=== PATIENT | male | born 1990 | race Caucasian/White ===

== ENCOUNTER 2016-09-12 20:10 | Observation (INO) | payer BC ==
[2016-09-12] MEDS ORDERED: Sodium Chloride 0.9% 1000 ML 1,000 ML IV STA (20:25)
[2016-09-12] MEDS ORDERED: MORPHINE SULFATE 4 MG INJ IV ONE ×2 (20:25→22:20)
[2016-09-12] MEDS ORDERED: Zofran 4 MG/2 ML VIAL IV ONE (20:25)
[2016-09-12] MEDS ORDERED: Zofran 4 MG/2 ML VIAL ONE (20:29)
[2016-09-12] MEDS ORDERED: Sodium Chloride 0.9% 1000 ML 1,000 ML ONE (20:29)
[2016-09-12] MEDS ORDERED: MORPHINE SULFATE 4 MG INJ ONE ×2 (20:29→22:23)
--- NOTE | 2016-09-12 20:29 | ERPHSYRPT ---
- History of Present Illness Time Seen by Provider: 09/12/16 20:25 Historian: patient Exam Limitations: no limitations Physician History: 25-year-old white male arrives with complaint of pain in the epigastric region symptoms for 2-3 days describes the pain as a pressure he has been nauseous no vomiting no diarrhea no melena no hematochezia. Past medical history includes hypoglycemia, pneumonia as a child. Past surgical history myringotomy tubes as a child. Timing/Duration: day(s) (2-3 days) Activities at Onset: none Quality: pressure Abdominal Pain Onset Location: epigastric Pain Radiation: no radiation Severity of Pain-Max: moderate Severity of Pain-Current: moderate Modifying Factors: Improves With: nothing Associated Symptoms: nausea, No back, No chest pain, No diaphoresis, No diarrhea , No fever/chills, No fatigue, No headache, No heartburn, No loss of appetite, No neck pain, No rash, No shortness of breath, No syncope, No vomiting, No weakness Previous symptoms: no prior history Allergies/Adverse Reactions: cefaclor [From Ceclor] Allergy (Severe, Verified 09/12/16 20:28) ANAPHYLACTIC REACTION. Cephalosporins Allergy (Verified 09/12/16 20:28) Penicillins Allergy (Verified 09/12/16 20:28) Home Medications: No Home Meds 1 ea UD 09/12/16 [History] Hx Tetanus, Diphtheria Vaccination/Date Given: Yes (2011) Hx Influenza Vaccination/Date Given: No Hx Pneumococcal Vaccination/Date Given: No - Review of Systems Constitutional: No Fever, No Chills Eyes: No Symptoms Ears, Nose, & Throat: No Symptoms Respiratory: No Cough, No Dyspnea Cardiac: No Chest Pain, No Edema, No Syncope Abdominal/Gastrointestinal: Abdominal Pain, Nausea, No Vomiting, No Diarrhea, No Constipation, No Hematemesis, No Hematochezia, No Melena, No Dysphagia, No Appetite Changes Genitourinary Symptoms: No Dysuria Musculoskeletal: No Back Pain, No Neck Pain Skin: No Rash Neurological: No Dizziness, No Focal Weakness, No Sensory Changes Psychological: No Symptoms Endocrine: No Symptoms All Other Systems: Reviewed and Negative - Past Medical History Pertinent Past Medical History: Yes Neurological History: No Pertinent History ENT History: No Pertinent History Cardiac History: No Pertinent History Respiratory History: No Pertinent History Endocrine Medical History: Hypoglycemia Musculoskeletal History: No Pertinent History GI Medical History: No Pertinent History History: No Pertinent History Psycho-Social History: No Pertinent History Male Reproductive Disorders: Other Other Medical History: PT STATES HE HAD PNEUMONIA A CHILD. DX WITH HYPOGLYCEMIA A CHILD. - Past Surgical History Past Surgical History: No Neuro Surgical History: No Pertinent History Cardiac: No Pertinent History Respiratory: No Pertinent History Gastrointestinal: No Pertinent History Genitourinary: No Pertinent History Musculoskeletal: No Pertinent History Male Surgical History: No Pertinent History Other Surgical History: HAD TUBES PLACED TWICE A CHILD - Social History Smoking Status: Current every day smoker How long have you smoked: 2 YEARS Exposure to second hand smoke: Yes Drug Use: none Patient Lives Alone: No - Nursing Vital Signs Nursing Vital Signs: Initial Vital Signs Temperature 97.7 F Temperature Source Oral Pulse Rate 64 Respiratory Rate 18 Blood Pressure [] 136/68 Pain Intensity 7 - Physical Exam General Appearance: moderate distress, alert Eye Exam: PERRL/EOMI, eyes nml inspection Ears, Nose, Throat Exam: normal ENT inspection Neck Exam: normal inspection, non-tender, supple, full range of motion Respiratory Exam: normal breath sounds, lungs clear, No respiratory distress Cardiovascular Exam: regular rate/rhythm, normal heart sounds Gastrointestinal/Abdomen Exam: other (abdomen tender epigastric region with palpation positive bowel sounds no masses patient sitting up forward) Back Exam: normal inspection, normal range of motion, No CVA tenderness, No vertebral tenderness Extremity Exam: normal inspection, normal range of motion, pelvis stable Neurologic Exam: alert, oriented x 3, cooperative, normal mood/affect, nml cerebellar function, sensation nml, No motor deficits Skin Exam: normal color, warm, dry SpO2: 98 Oxygen Delivery: Room Air - Course Nursing assessment & vital signs reviewed: Yes - CT Exams Abdomen/Pelvis CT Interpretation: Discussed w/radiologist (CT abdomen and pelvis with contrast : Compared to November 05, 2011, mild fluid distended bowel loops, mid abdomen with fluid leveling and wall thickening favoring enteritis. Moderate diffuse fecal stasis. Appendix not seen) Ordered Tests: Active Orders 24 hr Category Date Time Status Clean Catch Urine Specimen STAT Care 09/12/16 20:25 Active IV Insertion STAT Care 09/12/16 20:24 Active ABDOMEN AND PELVIS W CONTRAST [CT] Stat Exams 09/12/16 21:02 Taken AMYLASE Stat Lab 09/12/16 20:20 Completed CBC W DIFF Stat Lab 09/12/16 20:20 Completed CMP Stat Lab 09/12/16 20:20 Completed LIPASE Stat Lab 09/12/16 20:20 Completed UA Stat Lab 09/12/16 20:20 Completed Transfer Order Routine Transfer 09/12/16 22:27 Ordered Medication Summary Discontinued Medications Generic Name Dose Route Start Last Admin Trade Name Tamia PRN Reason Stop Dose Admin Sodium Chloride 1,000 mls @ 999 mls/hr 09/12/16 20:25 09/12/16 20:33 Sodium Chloride 0.9% 1000 Ml IV 09/12/16 21:25 999 mls/hr .Q1H1M STA Administration Sodium Chloride Confirm 09/12/16 20:29 Sodium Chloride 0.9% 1000 Ml Administered 09/12/16 20:30 Dose 1,000 mls @ ud .ROUTE .STK-MED ONE Morphine Sulfate 4 mg 09/12/16 20:25 09/12/16 20:33 Morphine Sulfate 4 Mg Inj IV 09/12/16 20:26 4 mg STAT ONE Administration Morphine Sulfate Confirm 09/12/16 20:29 Morphine Sulfate 4 Mg Inj Administered 09/12/16 20:30 Dose 4 mg .ROUTE .STK-MED ONE Morphine Sulfate 4 mg 09/12/16 22:20 09/12/16 22:24 Morphine Sulfate 4 Mg Inj IV 09/12/16 22:21 4 mg STAT ONE Administration Morphine Sulfate Confirm 09/12/16 22:23 Morphine Sulfate 4 Mg Inj Administered 09/12/16 22:24 Dose 4 mg .ROUTE .STK-MED ONE Ondansetron HCl 4 mg 09/12/16 20:25 09/12/16 20:33 Zofran 4 Mg/2 Ml Vial IV 09/12/16 20:26 4 mg STAT ONE Administration Ondansetron HCl Confirm 09/12/16 20:29 Zofran 4 Mg/2 Ml Vial Administered 09/12/16 20:30 Dose 4 mg .ROUTE .STK-MED ONE Lab/Rad Data: Laboratory Result Diagrams 09/12/16 20:20 09/12/16 20:20 Laboratory Results 09/12/16 09/12/16 09/12/16 Range/Units 20:20 20:20 20:20 WBC 8.6 (4.0-10.5) K/mm3 RBC 4.70 (4.1-5.6) M/mm3 Hgb 14.5 (12.5-18.0) gm/dl Hct 42.8 (42-50) % MCV 91.1 (78-100) fl MCH 30.9 (26-32) pg MCHC 33.9 (32-36) g/dl RDW 13.4 (11.5-14.0) % Plt Count 204 (150-450) K/mm3 MPV 11.1 H (6-9.5) fl Gran % 59.0 (36.0-66.0) % Lymphocytes % 31.6 (24.0-44.0) % Monocytes % 8.7 (0.0-12.0) % Eosinophils % 0.7 (0.00-5.0) % Basophils % 0.0 (0.0-0.4) % Basophils # 0 (0-0.4) Sodium 143 (136-145) mEq/L Potassium 3.9 (3.5-5.1) mEq/L Chloride 104 (98-107) mEq/L Carbon Dioxide 29.2 (21-32) mEq/L Anion Gap 13.7 (5-15) MEQ/L BUN 10 (9-20) mg/dL Creatinine 1.09 (0.55-1.30) mg/dl Estimated GFR > 60 ML/MIN Glucose 117 H (70-110) MG/DL Calcium 9.4 (8.5-10.1) mg/dL Total Bilirubin 0.2 (0.2-1.0) mg/dL AST 21 (15-37) U/L ALT 16 (12-78) U/L Alkaline Phosphatase 77 (46-116) U/L Serum Total Protein 7.6 (6.4-8.2) gm/dL Albumin 4.1 (3.4-5.0) g/dL Amylase 107 (25-115) U/L Lipase 88 (73-393) U/L Ur Collection Type CLEAN CATCH Urine Color YELLOW (YELLOW) Urine Appearance SLIGHTLY CLOUDY (CLEAR) Urine pH 7.5 (5-6) Ur Specific [place] 1.020 (1.005-1.025) Urine Protein NEGATIVE (Negative) Urine Glucose (UA) NEGATIVE (NEGATIVE) mg/dL Urine Ketones NEGATIVE (NEGATIVE) Urine Nitrite NEGATIVE (NEGATIVE) Urine Bilirubin NEGATIVE (NEGATIVE) Urine Urobilinogen 0.2 (0-1) mg/dL Urine WBC (Auto) NEGATIVE (NEGATIVE) Urine RBC (Auto) NEGATIVE (0-5) Lefty/ul Specimen Received 09/12/16 2030 - Progress Progress: improved Progress Note: 09/12/16 21:00 This is a 25-year-old white male previously healthy arrives with complaint of epigastric pain described as a pressure which is a moderately severe symptoms for 2-3 days she states that he has not been vomiting he has been nauseous denies constipation melena hematochezia or diarrhea. Patient's labs are essentially normal patient however is quite tender in the epigastric region and he is sitting forward to avoid pain in this area. Patient is given IV normal saline IV morphine and Zofran he continues to experience pain in this area . Will go ahead and CT patient's abdomen. 09/12/16 22:05 Patient with mild fluid distended bowel loops mid abdomen with fluid leveling and wall thickening favoring enteritis on CT there is moderate diffuse fecal stasis appendix was not well seen. Patient's labs essentially normal. Patient continues to complain of a nausea and epigastric pain. Will discuss case with Dr. minor for possible placement on observation 09/12/16 22:24 Case is discussed with Dr. minor she is agreeable for observation however she did state that she would like to have the surgeons contacted and case patient has worsening overnight. I've discussed the case with Dr. Frost. He did state that if the patient continues to have vomiting not responsive to his antiemetics or has distended abdomen consider an NG tube he did state that they will not be by until tomorrow night. patient appears to be stable , he has a normal white count. And looks like enteritis on CT. Will place on observation - Departure Time of Disposition: 22:26 Departure Disposition: Observation Clinical Impression: Epigastric abdominal pain, Enteritis Condition: Fair Critical Care Time: No Referrals: STEVE AMARAL MD [Primary Care Provider] -
[2016-09-12 20:32] LABS: Eosinophil % 0.7 % (0.00-5.0); Lymphocytes % 31.6 % (24.0-44.0); Mean Cell Volume 91.1 fl (78-100); Mean Corpuscular Hemoglobin 30.9 pg (26-32); Mean Platelet Volume 11.1 fl (6-9.5); Monocytes % 8.7 % (0.0-12.0); Platelet Count 204 K/mm3 (150-450); Red Cell Distribution Width 13.4 % (11.5-14.0); White Blood Count 8.6 K/mm3 (4.0-10.5)
[2016-09-12 20:40] LABS: COMPLETE URINE MICROSCOPIC? NO; Collection Type CLEAN CATCH; Ph 7.5 (5-6)
[2016-09-12 20:52] LABS: ALBUMIN 4.1 g/dL (3.4-5.0); ALKALINE PHOSPHATASE 77 U/L (46-116); ANION GAP 13.7 MEQ/L (5-15); BILIRUBIN,TOTAL 0.2 mg/dL (0.2-1.0); BLOOD UREA NITROGEN 10 mg/dL (9-20); CHLORIDE 104 mEq/L (98-107); Carbon Dioxide 29.2 mEq/L (21-32); Glucose 117 MG/DL (70-110); LIPASE 88 U/L (73-393); Potassium 3.9 mEq/L (3.5-5.1); SGOT/AST 21 U/L (15-37); SGPT/ALT 16 U/L (12-78); SODIUM 143 mEq/L (136-145); Total Protein 7.6 gm/dL (6.4-8.2)
[2016-09-12] MEDS ORDERED: Zofran 4 MG/2 ML VIAL IV PRN (23:08)
[2016-09-12] MEDS: Sodium Chloride 0.9% 1000 ML 1,000 ML IV SCH (23:17)
[2016-09-13 05:55] LABS: BASOPHIL % 0.2 % (0.0-0.4); Eosinophil % 0.5 % (0.00-5.0); Granulocytes % 50.5 % (36.0-66.0); Lymphocytes % 39.2 % (24.0-44.0); Mean Cell Volume 93.5 fl (78-100); Mean Corpuscular Hemoglobin 30.5 pg (26-32); Mean Platelet Volume 11.3 fl (6-9.5); Monocytes % 9.6 % (0.0-12.0); Platelet Count 145 K/mm3 (150-450); Red Blood Count 4.29 M/mm3 (4.1-5.6); Red Cell Distribution Width 13.3 % (11.5-14.0); White Blood Count 6.4 K/mm3 (4.0-10.5)
[2016-09-13 06:07] LABS: ALBUMIN 3.2 g/dL (3.4-5.0); ALKALINE PHOSPHATASE 54 U/L (46-116); ANION GAP 10.3 MEQ/L (5-15); BILIRUBIN,TOTAL 0.3 mg/dL (0.2-1.0); BLOOD UREA NITROGEN 9 mg/dL (9-20); CHLORIDE 109 mEq/L (98-107); Carbon Dioxide 30.3 mEq/L (21-32); Glucose 77 MG/DL (70-110); Potassium 4.6 mEq/L (3.5-5.1); SGOT/AST 17 U/L (15-37); SGPT/ALT 12 U/L (12-78); SODIUM 145 mEq/L (136-145)
[2016-09-13] MEDS: MORPHINE SULFATE 4 MG INJ IV PRN ×3 (08:33→17:42)
--- NOTE | 2016-09-13 08:57 | XRAY ---
Indication: Epigastric pain and vomiting. Multiple contiguous axial images obtained through the abdomen and pelvis using 80 cc Isovue 370 contrast only. Comparison: Noncontrast exam November 05, 2011. Lung bases are clear. Heart is not enlarged. Noncontrasted stomach and bowel loops appear nonobstructed. Several small bowel loops in the mid to left abdomen are now moderately fluid distended with some fluid leveling and wall thickening/enhancement favoring enteritis. Moderate diffuse scattered colonic fecal debris throughout. Appendix not seen. No free fluid/air. Remaining liver, gallbladder, pancreas, spleen, adrenal glands, kidneys, ureters, bladder, and aorta appear unremarkable. No pathologic retroperitoneal lymphadenopathy. Osseous structures intact. Impression: 1. New CT features favoring small bowel enteritis. No complications. 2. Incidental fecal stasis without obstruction. CT DI 15.49
--- NOTE | 2016-09-13 09:22 | HP ---
HISTORY OF PRESENT ILLNESS: This is a 25 y/o man who presented to the Emergency Department. He reports that he had had stomach pain for 2-3 days mostly in the middle epigastric area and it feels like a constant pressure. He also reports that he has been constipated for 2-3 days. He actually thinks his last bowel movement was Sunday and this is now Sunday. He reports some vomiting and last vomited in the Emergency Room at approximately 8:30 last night. He reports the pain medications given in the Emergency Room and overnight in the hospital have helped and he was able to sleep. He denies any previous problems like this. The patient reports, if he eats a full meal, his stomach feels better for a couple of hours. REVIEW OF SYSTEMS: He has had a little bit of a cough, but not more than his usual cough. It is nonproductive. He denies any chest pain. No headaches. No rashes. He reports he has been urinating okay. No lower extremity edema. Otherwise, Review of Systems is negative. PAST MEDICAL HISTORY: History of hypoglycemia and kidney stone. PAST SURGICAL HISTORY: Myringotomy tubes placed and removed. SOCIAL HISTORY: He smokes 1 pack per day. He reports he is cutting back and thinking about quitting. He reports he used to smoke 2 1/2 packs per day and started when he was 13 years old. He uses alcohol 1-2 times a week and drinks 1-2 drinks at a time. He has no history of withdrawal from alcohol. He reports using marijuana, but not for the past year. He denies any illicit drugs. FAMILY HISTORY: His mother is living and has hypoglycemia and arthritis. His father is living and has hypertension and history of kidney stones. The patient reports coronary artery disease runs on his dad's side of the family. CURRENT MEDICATIONS: None. ALLERGIES: PENICILLIN, CEPHALOSPORINS, CECLOR. PHYSICAL EXAMINATION: VITAL SIGNS: Temperature current 97.6, temperature maximum 97.7, heart rate 58-70, respiratory rate 14-18, BP 114-141/61-85, weight 59 Kg. GENERAL: The patient is a pleasant, talkative man sitting up in bed in no acute distress. CVS: He has a regular rate and rhythm. No murmurs, gallops, or rubs. CHEST: Clear to auscultation bilaterally. No crackles or wheezes. ABDOMEN: He is tender in the epigastric area. No guarding. No rigidity. Normal bowel sounds. EXTREMITIES: No clubbing, cyanosis, or edema. SKIN: Warm, dry, and intact. LABORATORY DATA: On admission, his WBC was 8.6. Repeat WBC 6.4. Amylase and lipase were negative. UA was negative. Glucose 77 this AM. He had a CT scan of his abdomen and pelvis with a preliminary report of mild fluid distended bowel loops in the mid abdomen with fluid leveling and wall thickening favoring enteritis, moderate diffuse fecal stasis, and appendix not seen. ASSESSMENT AND PLAN: 1. EPIGASTRIC PAIN: I asked the Emergency Room doctor to call the general surgeons which he did and they plan to see the patient today. Will continue with IV fluids and a clear liquid diet. Morphine as needed for pain. I am going to start him on Protonix 40 mg IV daily. He may need an upper endoscopy either inpatient or as an outpatient for evaluation for possible ulcer. 2. TOBACCO ABUSE: The patient was counseled that he needs to quit. 3. CONSTIPATION: Will start him on a stool softener.
[2016-09-13] MEDS: PROTONIX 40 MG IV IV SCH (09:28)
[2016-09-13] MEDS: Nicoderm CQ 21 MG TOP SCH (09:28)
[2016-09-13] MEDS: Sodium Chloride 0.9% 1000 ML 1,000 ML IV SCH ×2 (09:28→21:42)
[2016-09-13] MEDS: Senokot-S Tablet PO PRN ×2 (09:36→21:42)
[2016-09-13] MEDS: Levofloxacin 500MG/100ML D5W 100 ML IV SCH (16:34)
[2016-09-13] MEDS: FLAGYL 500 MG IVPB 100 ML IV SCH ×2 (18:23→23:59)
[2016-09-14] MEDS: FLAGYL 500 MG IVPB 100 ML IV SCH ×2 (05:19→10:09)
[2016-09-14 05:32] LABS: Mean Cell Volume 92.2 fl (78-100); Mean Corpuscular Hemoglobin 30.7 pg (26-32); Mean Platelet Volume 11.5 fl (6-9.5); Platelet Count 166 K/mm3 (150-450); Red Blood Count 4.63 M/mm3 (4.1-5.6); Red Cell Distribution Width 13.2 % (11.5-14.0); White Blood Count 5.4 K/mm3 (4.0-10.5)
--- NOTE | 2016-09-14 07:41 | CONS ---
CONSULT DATE: 09/13/2016 HISTORY: A 25 year-old gentleman with couple day history of some vague abdominal pain, persistent nausea and vomiting. He denies any diarrhea, denies any bloody stools. He has been afebrile. His white blood cell count is 6.4, hemoglobin 13.1, no shift, PLT 145,000. CT scan had question of fluid in the small bowel and slight thickening consistent with question of enteritis. Liver function test within normal as well as amylase. PAST MEDICAL HISTORY: PAST SURGICAL HISTORY: Tubes in his ears in the past. He denies any prior abdominal surgeries. HOME MEDICATIONS: ALLERGIES: PENICILLIN, CECLOR. FAMILY HISTORY: Hypoglycemia, heart disease. Negative for colon cancer, negative for inflammatory bowel disease. SOCIAL HISTORY: One pack per day smoker, occasional alcohol use denies abuse. REVIEW OF SYSTEMS: Twelve systems reviewed per admission assessment. Pertinent for as noted above. He does wear glasses. He had no diarrhea or bloody stools. He had nausea and vomiting. PHYSICAL EXAMINATION: Temperature 97.9F, blood pressure 124/60, pulse 70. GENERAL: No acute distress. HEENT: Sclera nonicteric. NECK: No JVD. CHEST: Equal excursion, nonlabored breathing. CVS: Regular rate and rhythm. ABDOMEN: Soft. He has got some mild tenderness epigastrium mid abdomen. No rebound. He seems to be tender in the right upper quadrant at the moment. EXTREMITIES: No significant edema. NEURO: Alert, moving extremities grossly symmetrically. IMPRESSION: Some acute vague abdominal pain unclear etiology associated with some nausea and vomiting. CT findings had question of some enteritis but could be from gastritis, gastroenteritis, peptic ulcer disease versus atypical biliary colic. There is no evidence of inflammatory changes in the appendiceal area so I doubt that is the etiology of his symptoms. At this time he can try some sips of liquid tonight. I recommend empiric antibiotics to treat this as an enteritis-type thing with some Cipro and Flagyl. If he continues to improve then advance his diet tomorrow. If he fails to improve could consider doing a gallbladder ultrasound tomorrow if his symptoms do not tremendously improve. He understands that we are covering multiple hospitals here and I will call and check on him tomorrow to see if he fails to improve. Otherwise no emergent surgery necessary at this moment, continue medical management at this point. No emergent surgery necessary at this moment. The patient agreed to the plan. I will follow with you.
--- NOTE | 2016-09-14 09:05 | XRAY ---
Indication: Abdominal pain. Two-dimensional right upper quadrant abdominal sonogram performed. Comparison: None Visualized portions of the gallbladder, liver, pancreas, and right kidney appear sonographically normal. Common bile duct measures 2.6 mm. Right kidney measures 10.3 cm in length. No ascites. Impression: Negative gallbladder sonogram.
[2016-09-14] MEDS: PROTONIX 40 MG IV IV SCH (09:39)
--- NOTE | 2016-09-14 09:39 | PCM.NOTE ---
Date and Time: 09/14/16935 Subjective Assessment: Patient reports he continues to have some mild pain but it has improved. He was seen by the surgeon yesterday and I appreciate their input. The patient reports he had a hard stool yesterday and now his abdomen feels less bloated. He is hungry and would like to try to advance his diet and the surgeon's note said if he was feeling better, it was ok to advance his diet. - Review of Systems Constitutional: No Symptoms Eyes: No Symptoms Ears, Nose, & Throat: No Symptoms Respiratory: No Symptoms Cardiac: No Symptoms Abdominal/Gastrointestinal: Hematemesis (mild epigastric pain) Genitourinary Symptoms: No Symptoms Musculoskeletal: No Symptoms Skin: No Symptoms Objective Exam General Appearance: no apparent distress, alert Neurologic Exam: alert, cooperative, normal mood/affect Skin Exam: normal color, warm, dry, No rash Respiratory Exam: normal breath sounds, lungs clear, No crackles/rales, No rhonchi, No wheezing Cardiovascular Exam: regular rate/rhythm, normal heart sounds, No murmur, No friction rub, No gallop Gastrointestinal/Abdomen Exam: soft, normal bowel sounds, tenderness, No distention, No mass, No guarding Extremity Exam: normal inspection, other (no c/c/e) OBJECTIVE DATA Vital Signs: Vital Signs - 24 hr Temp Pulse Resp BP Pulse Ox 09/14/16 06:46 97.8 F 67 18 120/72 97 09/14/16 04:00 97.8 F 64 16 99/56 96 09/14/16 00:00 97.7 F 60 16 131/68 98 09/13/16 20:00 97.8 F 61 14 130/78 97 09/13/16 16:16 98 F 09/13/16 11:45 98.1 F 55 L 18 127/76 96 Pain Assessment - Last Documented Pain Intensity 3 Pain Scale Used 0-10 Pain Scale Intake and Output: Intake & Output 09/12/16 09/13/16 09/14/16 09/15/16 06:59 06:59 06:59 06:59 Intake Total 894 1280 0 Balance 894 1280 0 Weight 69.082 kg Lab Results: Lab Results-Last 24 Hours 09/14/16 09/14/16 Range/Units 05:22 05:22 WBC 5.4 (4.0-10.5) K/mm3 RBC 4.63 (4.1-5.6) M/mm3 Hgb 14.2 (12.5-18.0) gm/dl Hct 42.7 (42-50) % MCV 92.2 (78-100) fl MCH 30.7 (26-32) pg MCHC 33.3 (32-36) g/dl RDW 13.2 (11.5-14.0) % Plt Count 166 (150-450) K/mm3 MPV 11.5 H (6-9.5) fl Lipase 51 L (73-393) U/L Radiology Exams: Radiology Procedures Category Date Time Status GALLBLADDER [US] Routine Exams 09/14/16 08:10 Completed Assessment/Plan (1) Epigastric abdominal pain Current Visit: Yes Status: Acute Assessment & Plan: Gallbladder US reported as normal. Will advance diet. The surgeons started him on levofloxacin and metronidazole yesterday for possible enteritis. Code(s): R10.13 - EPIGASTRIC PAIN (2) Constipation Current Visit: Yes Status: Acute Assessment & Plan: Resolved. Code(s): K59.00 - CONSTIPATION, UNSPECIFIED (3) Tobacco abuse Current Visit: Yes Status: Acute Assessment & Plan: Continue nicotine patch and patient was counseled that he needs to quit smoking. Code(s): Z72.0 - TOBACCO USE
[2016-09-14] MEDS: Nicoderm CQ 21 MG TOP SCH (10:08)
[2016-09-14] MEDS: Sodium Chloride 0.9% 1000 ML 1,000 ML IV SCH (10:33)
[2016-09-14] MEDS: Levofloxacin 500MG/100ML D5W 100 ML IV SCH (15:57)
[2016-09-14 16:33] VITALS: BP 133/85; PULSE 68; O2SAT 99
== END 2016-09-14 16:46 | disposition left against medical advice (07) ==
LOC: ED 20:10 → MED SURG 22:47
PROVIDERS: ADMIT Internal Medicine; ATTEND Internal Medicine
DX: R10.13 Epigastric pain (principal); K59.00 Constipation, unspecified; Z72.0 Tobacco use
CPT/HCPCS: 36000; 36415; 74177; 76705; 80053; 81002; 82150; 83690; 85025; 85027; 96360; 96365; 96374; 96375; 96376; 99285; G0378; J1956; J2270; J2405; A9270-GY